=== PATIENT | female | born 1990 | race Caucasian/White ===

== ENCOUNTER 2017-03-09 17:52 | Emergency (ER) | payer SELFPAY ==
[~2017-03-09] VITALS: Ht 165.1 cm; Wt 60.0 kg
[2017-03-09 17:56] VITALS: BP 114/76; PULSE 98; RESP 22; TEMP 98.8; O2SAT 95
--- NOTE | 2017-03-09 18:10 | PD ---
Physical Exam Date Seen by Provider: Mar 09, 2017 Time Seen by Provider: 18:03 Narrative 26 Y/O female presents with Heavy Vaginal Bleeding and Cramping. Patient has Hx. of taking Plan B 2 weeks ago. Has had bleeding since, but it was improving until 2 days ago. Now passing Clots and "flesh/body parts". No Fever or Chills. Patient has no urinary symptoms. No Nausea or Vomiting. Protocols ordered. Vital signs reviewed. Patient stable. Awaiting Bed placement. Data Data Last Documented VS Vital Signs Date Time Temp Pulse Resp B/P Pulse Ox O2 Delivery O2 Flow Rate FiO2 03/09/17 17:56 98.8 98 22 114/76 95 MDM Medical Record Reviewed: Yes Supervised Visit with FARTUN: Yes Condition: Stable Mich Robles Mar 09, 2017 18:10
[2017-03-09 19:06] LABS: BLOOD, URINE LARGE (NEG); COMMENT (UR) CULT NOT INDICATED; CULTURE IF INDICATED CULT NOT INDICATED; GLUCOSE,URINE NEG (NEG); KETONE, URINE TRACE mg/dL (NEG); NITRITE,URINE NEG (NEG); PH, URINE 7.5 (5.0-8.5); SQUAMOUS EPITHELIAL CELL URINE 1 /hpf (0-5); URINE COLOR LIGHT-RED (YELLW/STRAW)
== END 2017-03-09 19:35 | disposition left against medical advice (07) ==
LOC: NED 17:52
DX: N93.8 Other specified abnormal uterine and vaginal bleeding (principal)
CPT/HCPCS: 81001; 99283